=== PATIENT | female | born 1955 | race Caucasian/White ===

== ENCOUNTER 2016-09-07 08:32 | Emergency (ER) | payer MEDICARE, MEDICAID ==
[~2016-09-07] VITALS: Ht 160 cm; Wt 87.0 kg
[~2016-09-07 08:32] MED LIST: XANAX
[2016-09-07] MEDS ORDERED: SODIUM CHLORIDE 0.9% 1,000 ML IV ONE (11:14)
[2016-09-07] MEDS ORDERED: ONDANSETRON HCL 4MG/2ML VIAL IV STA (11:14)
[2016-09-07] MEDS ORDERED: CLINDAMYCIN 900 MG in DEXTROSE 5% WATER 50 ML IV ONE (11:15)
[2016-09-07] MEDS ORDERED: KETOROLAC 30MG/ML VIAL IV ONE (11:30)
[2016-09-07 11:43] LABS: BASOPHILS % 0.7 % (0.0-2.0); EOSINOPHILS % 1.8 % (0.0-5.0); HEMOGLOBIN. 13.8 g/dL (12.0-16.0); LYMPHOCYTES % 19.4 % (20.0-50.0); MEAN CORPUSCULAR VOLUME 101.8 fL (81.0-99.0); MEAN PLATELET VOLUME 7.5 fl (7.4-10.4); MONOCYTES % 6.8 % (2.0-8.0); NEUTROPHILS % 71.3 % (40.0-76.0); PLATELET 155 x1000/uL (130-400); RED BLOOD CELL COUNT 3.93 mill/uL (4.2-5.4); RED CELL DISTRIBUTION WIDTH 15.6 % (11.6-14.6)
[2016-09-07 11:47] LABS: CHLORIDE 103 mEq/L (98-107)
[2016-09-07 11:55] LABS: CARBON DIOXIDE 25 mEq/L (21-32)
[2016-09-07 14:01] VITALS: BP 149/69
== END 2016-09-07 14:08 | disposition home or self-care (01) ==
LOC: ER 10:04
DX: I10 Essential (primary) hypertension (principal); K02.9 Dental caries, unspecified; K05.10 Chronic gingivitis, plaque induced; R11.10 Vomiting, unspecified
CPT/HCPCS: 36415; 70486; 80053; 85025; 96361; 96365; 96375; 99285; J1885; J2405; J3490; J7030; J7060

== ENCOUNTER 2016-10-16 13:12 | Emergency (ER) | payer MEDICARE, MEDICAID ==
[~2016-10-16] VITALS: Ht 165.1 cm; Wt 73.0 kg
[2016-10-16 14:04] VITALS: BP 146/93
== END 2016-10-16 17:30 | disposition home or self-care (01) ==
LOC: ER 15:52
DX: K08.89 Other specified disorders of teeth and supporting structures (principal); I10 Essential (primary) hypertension; F41.9 Anxiety disorder, unspecified
CPT/HCPCS: 99283

== ENCOUNTER 2016-12-12 13:39 | Emergency (ER) | payer MEDICARE, MEDICAID ==
[~2016-12-12] VITALS: Ht 160 cm; Wt 86.0 kg
[2016-12-12 13:59] VITALS: BP 163/95
== END 2016-12-12 18:11 | disposition left against medical advice (07) ==
LOC: ER 15:41
DX: R21 Rash and other nonspecific skin eruption (principal); Z53.21 Procedure and treatment not carried out due to patient leaving prior to being seen by health care provider

== ENCOUNTER 2017-08-04 18:29 | Inpatient (IN) | payer MEDICARE, MEDICAID ==
[~2017-08-04] VITALS: Ht 170.2 cm; Wt 86.2 kg
[2017-08-04 20:17] LABS: EOSINOPHILS % 1.8 % (0.0-5.0); HEMATOCRIT. 39.7 % (36.0-48.0); HEMOGLOBIN. 13.6 g/dL (12.0-16.0); LYMPHOCYTES % 44.3 % (20.0-50.0); MEAN CORPUSCULAR VOLUME 102.1 fL (81.0-99.0); MEAN PLATELET VOLUME 7.3 fl (7.4-10.4); MONOCYTES % 7.6 % (2.0-8.0); NEUTROPHILS % 45.3 % (40.0-76.0); PLATELET 244 x1000/uL (130-400); RED BLOOD CELL COUNT 3.89 mill/uL (4.2-5.4); RED CELL DISTRIBUTION WIDTH 14.6 % (11.6-14.6)
[2017-08-04 20:18] LABS: CHLORIDE 106 mEq/L (98-107)
[2017-08-04 20:43] LABS: ETHANOL BLOOD 291 mg/dL
[2017-08-05] MEDS ORDERED: CLONIDINE 0.1MG TABLET PO PRN (00:45)
[2017-08-05] MEDS ORDERED: DOCUSATE SODIUM 100MG CAPSULE PO PRN (00:45)
[2017-08-05] MEDS ORDERED: HYDROCODONE/ACETAMINOPHEN 5/325MG TABLET PO PRN ×2 (00:45→19:00)
[2017-08-05] MEDS ORDERED: ACETAMINOPHEN 325MG TABLET PO PRN ×2 (00:45→19:00)
[2017-08-05] MEDS ORDERED: IPRATROPIUM/ALBUTEROL 0.5-3(2.5)MG/3ML NEB INH PRN (00:45)
[2017-08-05] MEDS ORDERED: MAGNESIUM/ALUMINUM HYDROXIDE/SIMETHICONE 30ML UDC PO PRN (00:45)
[2017-08-05] MEDS ORDERED: MVI, ADULT NO.1 10 ML, FOLIC ACID 1 MG, THIAMINE HCL 100 MG in SODIUM CHLORIDE 0.9% 1,0... IV NR ×4 (01:30)
[2017-08-05] MEDS ORDERED: ASPIRIN 81MG TABLET PO ONE (03:00)
[2017-08-05 04:00] VITALS: BP 114/63
[2017-08-05] MEDS: LORAZEPAM 2MG/ML CPJ IV PRN ×3 (04:22→14:32)
[2017-08-05] MEDS: CHLORDIAZEPOXIDE 25MG CAPSULE PO SCH ×3 (07:04→22:05)
[2017-08-05 07:23] LABS: CHLORIDE 108 mEq/L (98-107)
[2017-08-05 07:37] LABS: CREATINE KINASE 97 IU/L (26-192)
[2017-08-05 08:00] VITALS: BP 124/86
[2017-08-05] MEDS: FOLIC ACID 1MG TABLET PO SCH (08:10)
[2017-08-05] MEDS: ASPIRIN 81MG EC TABLET PO SCH (08:10)
[2017-08-05] MEDS: MULTIVITAMINS,THER W-MINERALS TABLET PO SCH (08:10)
[2017-08-05] MEDS: THIAMINE HCL 100MG TABLET PO SCH (08:10)
[2017-08-05] MEDS: ONDANSETRON HCL 4MG/2ML VIAL IV PRN ×2 (08:11→17:27)
[2017-08-05] MEDS: SODIUM CHLORIDE 0.9% 1,000 ML IV SCH ×2 (11:02→22:06)
[2017-08-05 12:00] VITALS: BP_SYST 129; BP_SYST 94; BP_DIAS 55; BP_DIAS 77
[2017-08-05 15:55] LABS: CREATINE KINASE 91 IU/L (26-192)
[2017-08-05 15:56] LABS: CREATINE KINASE MB FRACTION 1.2 ng/mL (0.5-3.6)
[2017-08-05 16:00] VITALS: BP 145/80
[2017-08-05 16:00] LABS: T4 FREE 0.82 ng/dL (0.76-1.46)
[2017-08-05 16:40] LABS: VITAMIN B12 SERUM 318 pg/mL (211-911)
[2017-08-05 16:52] LABS: FOLIC ACID (FOLATE) SERUM > 20.00 ng/mL (>5.38)
[2017-08-05 17:08] LABS: AMMONIA 30 uMol/L (<32)
[2017-08-05] MEDS: DIPHENHYDRAMINE 50MG/ML VIAL IV PRN (17:28)
[2017-08-05] MEDS ORDERED: HYDROCODONE/ACETAMINOPHEN 10/325MG TABLET PO PRN (19:00)
[2017-08-05 20:00] VITALS: BP 143/89
[2017-08-06 00:14] VITALS: BP 152/78
[2017-08-06] MEDS: LORAZEPAM 2MG/ML CPJ IV PRN (03:50)
[2017-08-06 04:00] VITALS: BP 148/79
[2017-08-06] MEDS: CHLORDIAZEPOXIDE 25MG CAPSULE PO SCH ×2 (06:00→12:57)
[2017-08-06] MEDS: DIPHENHYDRAMINE 50MG/ML VIAL IV PRN (06:16)
[2017-08-06 07:16] LABS: BASOPHILS % 0.6 % (0.0-2.0); EOSINOPHILS % 2.6 % (0.0-5.0); HEMATOCRIT. 41.5 % (36.0-48.0); HEMOGLOBIN. 14.3 g/dL (12.0-16.0); LYMPHOCYTES % 19.5 % (20.0-50.0); MEAN CORPUSCULAR HEMOGLOBIN 35.1 pg (28.0-32.0); MEAN CORPUSCULAR VOLUME 101.9 fL (81.0-99.0); MEAN PLATELET VOLUME 7.9 fl (7.4-10.4); MONOCYTES % 7.4 % (2.0-8.0); NEUTROPHILS % 69.9 % (40.0-76.0); PLATELET 196 x1000/uL (130-400); RED BLOOD CELL COUNT 4.07 mill/uL (4.2-5.4); RED CELL DISTRIBUTION WIDTH 14.4 % (11.6-14.6)
[2017-08-06 07:25] LABS: CHLORIDE 108 mEq/L (98-107)
[2017-08-06 07:33] LABS: LDL CHOLESTEROL 68 mg/dL (5-100)
[2017-08-06 07:36] LABS: HDL CHOLESTEROL 75 mg/dL (40-59)
[2017-08-06 08:00] VITALS: BP 140/78
[2017-08-06 08:10] LABS: CLARITY URINE CLOUDY (CLEAR); COLOR URINE YELLOW (YELLOW); KETONES URINE NEGATIVE (NEGATIVE); LEUKOCYTE ESTERASE URINE 1+ (NEGATIVE); NITRITE URINE NEGATIVE (NEGATIVE); OCCULT BLOOD URINE TRACE (NEGATIVE); PROTEIN URINE NEGATIVE (NEGATIVE); SPECIFIC GRAVITY URINE 1.021 (1.005-1.030); UROBILINOGEN URINE 0.2 E.U./dL (0.2-1.0)
[2017-08-06 08:28] LABS: *BARBITURATES SCREEN URINE NEGATIVE (NEGATIVE)
[2017-08-06 08:29] LABS: *AMPHETAMINES SCREEN URINE NEGATIVE (NEGATIVE); *BENZODIAZEPINES SCREEN URINE PRESUMTIVE POSITIVE (NEGATIVE); *COCAINE SCREEN URINE NEGATIVE (NEGATIVE); METHADONE URINE SCREEN NEGATIVE (NEGATIVE); OPIATES URINE SCREEN NEGATIVE (NEGATIVE); PHENCYCLIDINE URINE SCREEN NEGATIVE (NEGATIVE)
[2017-08-06 08:30] LABS: CANNABINOID URINE SCREEN PRESUMTIVE POSITIVE (NEGATIVE)
[2017-08-06] MEDS: THIAMINE HCL 100MG TABLET PO SCH (08:41)
[2017-08-06] MEDS: FOLIC ACID 1MG TABLET PO SCH (08:41)
[2017-08-06] MEDS: MULTIVITAMINS,THER W-MINERALS TABLET PO SCH (08:41)
[2017-08-06] MEDS: ASPIRIN 81MG EC TABLET PO SCH (08:41)
[2017-08-06] MEDS: ALPRAZOLAM 0.5 MG TABLET PO PRN ×2 (08:43→16:37)
[2017-08-06] MEDS: ONDANSETRON HCL 4MG/2ML VIAL IV PRN (11:12)
[2017-08-06 12:25] VITALS: BP 154/96
[2017-08-06] MEDS ORDERED: THIA100T72 PO (15:51)
[2017-08-06] MEDS ORDERED: DOCU-138 PO (15:51)
[2017-08-06] MEDS ORDERED: ASPI-1158 PO (15:51)
[2017-08-06] MEDS ORDERED: FOLI-43 PO (15:51)
[2017-08-06] MEDS ORDERED: CYAN10009 PO (15:51)
[2017-08-06 16:17] VITALS: BP 168/86
[2017-08-06] MEDS ORDERED: LOPERAMIDE HCL 2MG CAPSULE PO PRN (16:30)
[2017-08-06] MEDS: SODIUM CHLORIDE 0.9% 1,000 ML IV SCH (16:37)
[2017-08-07] MEDS ORDERED: CYANOCOBALAMIN 1000MCG TABLET PO SCH (07:50)
== END 2017-08-06 18:43 | disposition home or self-care (01) | DRG 896 ==
LOC: ER 20:39 → EDBEDREQTM 08-05 00:25 → EDBEDREQ 08-05 00:25 → EDBEDREQDT 08-05 00:25 → 6WST 08-05 00:39 → EDBEDREQ 08-05 00:42 → EDBEDREQTM 08-05 00:42 → ENRESERV 08-05 02:22
PROVIDERS: ADMIT Internal Medicine; ATTEND Internal Medicine
DX: F10.239 Alcohol dependence with withdrawal, unspecified (principal); G93.41 Metabolic encephalopathy; M48.02 Spinal stenosis, cervical region; E53.8 Deficiency of other specified B group vitamins; F41.9 Anxiety disorder, unspecified; F10.229 Alcohol dependence with intoxication, unspecified; I10 Essential (primary) hypertension; F17.200 Nicotine dependence, unspecified, uncomplicated; K21.9 Gastro-esophageal reflux disease without esophagitis; M47.812 Spondylosis without myelopathy or radiculopathy, cervical region; M50.323 Other cervical disc degeneration at C6-C7 level; Z79.899 Other long term (current) drug therapy; R26.9 Unspecified abnormalities of gait and mobility; Y90.8 Blood alcohol level of 240 mg/100 ml or more
CPT/HCPCS: 36415; 70450; 70551; 71045; 72141; 80048; 80053; 80061; 80305; 80307; 80329; 81003; 82140; 82550; 82553; 82607; 82746; 82962; 83036; 83735; 84439; 84443; 84481; 84484; 85025; 87493; 93005; 93970; 96365; 97162; 99285; G0482; J1200; J2060; J2405; J3411; J3490; J7030

== ENCOUNTER 2017-08-22 17:57 | Emergency (ER) | payer MEDICARE, MEDICAID ==
[~2017-08-22 17:57] MED LIST changes: +ASPI-1158 PO; +CYAN10009 PO; +DOCU-138 PO; +FOLI-43 PO; +THIA100T72 PO
[2017-08-22] MEDS ORDERED: MORPHINE SULFATE 4 MG/ML CPJ (NOT FOR IM USE) IV STA (18:27)
[2017-08-22] MEDS ORDERED: SODIUM CHLORIDE 0.9% 1,000 ML IV ONE (18:27)
[2017-08-22] MEDS ORDERED: FOLIC ACID 1 MG, THIAMINE HCL 100 MG, MVI, ADULT NO.1 10 ML in DEXTROSE 5% WATER 1,000 ML IV ONE ×4 (18:30)
[2017-08-22 19:14] LABS: BASOPHILS % 1.3 % (0.0-2.0); EOSINOPHILS % 2.1 % (0.0-5.0); HEMATOCRIT. 41.9 % (36.0-48.0); HEMOGLOBIN. 14.2 g/dL (12.0-16.0); LYMPHOCYTES % 24.8 % (20.0-50.0); MEAN CORPUSCULAR HEMOGLOBIN 34.6 pg (28.0-32.0); MEAN CORPUSCULAR VOLUME 101.9 fL (81.0-99.0); MEAN PLATELET VOLUME 7.7 fl (7.4-10.4); MONOCYTES % 6.7 % (2.0-8.0); NEUTROPHILS % 65.1 % (40.0-76.0); PLATELET 186 x1000/uL (130-400); RED BLOOD CELL COUNT 4.11 mill/uL (4.2-5.4); RED CELL DISTRIBUTION WIDTH 13.9 % (11.6-14.6)
[2017-08-22 19:18] LABS: CHLORIDE 103 mEq/L (98-107)
[2017-08-22 19:23] LABS: ETHANOL BLOOD 28 mg/dL
[2017-08-22] MEDS ORDERED: KETOROLAC 30MG/ML VIAL IV ONE (20:15)
[2017-08-23 00:31] VITALS: BP 115/81
== END 2017-08-23 00:35 | disposition home or self-care (01) ==
LOC: ER 17:57
DX: S09.90XA Unspecified injury of head, initial encounter (principal); R51 Headache; R53.1 Weakness; F10.10 Alcohol abuse, uncomplicated; Y90.1 Blood alcohol level of 20-39 mg/100 ml; F41.9 Anxiety disorder, unspecified; I10 Essential (primary) hypertension; F17.200 Nicotine dependence, unspecified, uncomplicated; Z79.82 Long term (current) use of aspirin; Y08.89XA Assault by other specified means, initial encounter; Y93.89 Activity, other specified; Y92.9 Unspecified place or not applicable
CPT/HCPCS: 36415; 70450; 80053; 85025; 96365; 96366; 96375; 99285; G0482; J1885; J2270; J3411; J3490; J7030; J7070

== ENCOUNTER 2018-03-04 22:10 | Emergency (ER) | payer MEDICARE, MEDICAID ==
[~2018-03-04] VITALS: Ht 160 cm; Wt 90.0 kg
[~2018-03-04 22:10] MED LIST changes: -XANAX
[2018-03-05 00:02] LABS: BASOPHILS % 1.1 % (0.0-2.0); EOSINOPHILS % 1.9 % (0.0-5.0); HEMATOCRIT. 40.2 % (36.0-48.0); LYMPHOCYTES % 37.5 % (20.0-50.0); MEAN CORPUSCULAR HEMOGLOBIN 35.5 pg (28.0-32.0); MEAN CORPUSCULAR VOLUME 101.9 fL (81.0-99.0); MEAN PLATELET VOLUME 7.3 fl (7.4-10.4); MONOCYTES % 7.8 % (2.0-8.0); NEUTROPHILS % 51.7 % (40.0-76.0); PLATELET 191 x1000/uL (130-400); RED BLOOD CELL COUNT 3.94 mill/uL (4.2-5.4)
[2018-03-05 00:05] LABS: CHLORIDE 106 mEq/L (98-107)
[2018-03-05 00:12] LABS: ETHANOL BLOOD 223 mg/dL
[2018-03-05 01:13] LABS: CLARITY URINE CLEAR (CLEAR); COLOR URINE YELLOW (YELLOW); KETONES URINE NEGATIVE (NEGATIVE); LEUKOCYTE ESTERASE URINE NEGATIVE (NEGATIVE); NITRITE URINE NEGATIVE (NEGATIVE); OCCULT BLOOD URINE NEGATIVE (NEGATIVE); PROTEIN URINE NEGATIVE (NEGATIVE); SPECIFIC GRAVITY URINE 1.014 (1.005-1.030); UROBILINOGEN URINE 0.2 E.U./dL (0.2-1.0)
[2018-03-05 01:46] LABS: *BARBITURATES SCREEN URINE NEGATIVE (NEGATIVE); *BENZODIAZEPINES SCREEN URINE PRESUMTIVE POSITIVE (NEGATIVE); *COCAINE SCREEN URINE NEGATIVE (NEGATIVE); METHADONE URINE SCREEN NEGATIVE (NEGATIVE); OPIATES URINE SCREEN NEGATIVE (NEGATIVE)
[2018-03-05 01:47] LABS: CANNABINOID URINE SCREEN NEGATIVE (NEGATIVE); PHENCYCLIDINE URINE SCREEN NEGATIVE (NEGATIVE)
[2018-03-05 01:49] LABS: *AMPHETAMINES SCREEN URINE NEGATIVE (NEGATIVE)
[2018-03-05] MEDS ORDERED: LORAZEPAM 0.5MG TABLET PO ONE (08:15)
[2018-03-05 14:43] VITALS: BP 148/84
== END 2018-03-05 15:06 ==
LOC: ER 22:10
DX: T42.4X2A Poisoning by benzodiazepines, intentional self-harm, initial encounter (principal); F30.9 Manic episode, unspecified; F10.229 Alcohol dependence with intoxication, unspecified; Y90.7 Blood alcohol level of 200-239 mg/100 ml; I10 Essential (primary) hypertension; G40.909 Epilepsy, unspecified, not intractable, without status epilepticus; Z79.82 Long term (current) use of aspirin; Y92.018 Other place in single-family (private) house as the place of occurrence of the external cause
CPT/HCPCS: 36415; 80053; 80305; 80307; 80329; 81003; 85025; 99285; G0482

== ENCOUNTER 2018-05-19 12:04 | Emergency (ER) | payer MEDICARE, MEDICAID ==
[~2018-05-19] VITALS: Ht 162.6 cm; Wt 70.0 kg
[2018-05-19 12:28] VITALS: BP 90/56
[2018-05-19] MEDS ORDERED: SODIUM CHLORIDE 0.9% 1,000 ML IV ONE (12:46)
[2018-05-19] MEDS ORDERED: ONDANSETRON HCL 4MG/2ML INJ IV STA (12:46)
[2018-05-19 13:08] LABS: BASOPHILS % 0.9 % (0.0-2.0); HEMATOCRIT. 40.5 % (36.0-48.0); HEMOGLOBIN. 13.8 g/dL (12.0-16.0); LYMPHOCYTES % 39.1 % (20.0-50.0); MEAN CORPUSCULAR HEMOGLOBIN 33.5 pg (28.0-32.0); MEAN CORPUSCULAR VOLUME 98.3 fL (81.0-99.0); MEAN PLATELET VOLUME 6.9 fl (7.4-10.4); MONOCYTES % 9.2 % (2.0-8.0); NEUTROPHILS % 48.8 % (40.0-76.0); PLATELET 174 x1000/uL (130-400); RED BLOOD CELL COUNT 4.12 mill/uL (4.2-5.4); RED CELL DISTRIBUTION WIDTH 14.4 % (11.6-14.6)
[2018-05-19 13:13] LABS: CHLORIDE 101 mEq/L (98-107)
== END 2018-05-19 13:26 | disposition left against medical advice (07) ==
LOC: ER 12:37
DX: F10.229 Alcohol dependence with intoxication, unspecified (principal); I95.9 Hypotension, unspecified; Y90.0 Blood alcohol level of less than 20 mg/100 ml; Z79.82 Long term (current) use of aspirin; Z79.899 Other long term (current) drug therapy
CPT/HCPCS: 36415; 80053; 83690; 83880; 84484; 85025; 93005; 99284; J7030

== ENCOUNTER 2018-05-20 19:38 | Emergency (ER) | payer MEDICARE, MEDICAID ==
[~2018-05-20] VITALS: Ht 160 cm; Wt 86.0 kg
[2018-05-20 19:42] VITALS: BP 102/76
== END 2018-05-21 | disposition left against medical advice (07) ==
LOC: ER 20:00
DX: Z53.21 Procedure and treatment not carried out due to patient leaving prior to being seen by health care provider (principal); I10 Essential (primary) hypertension; Z85.038 Personal history of other malignant neoplasm of large intestine

== ENCOUNTER 2018-09-03 15:00 | Emergency (ER) | payer OTHER, MEDICAID ==
[~2018-09-03] VITALS: Ht 165.1 cm; Wt 90.0 kg
[2018-09-03 16:53] LABS: CLARITY URINE CLEAR (CLEAR); COLOR URINE YELLOW (YELLOW); KETONES URINE NEGATIVE (NEGATIVE); LEUKOCYTE ESTERASE URINE NEGATIVE (NEGATIVE); NITRITE URINE NEGATIVE (NEGATIVE); OCCULT BLOOD URINE NEGATIVE (NEGATIVE); PH URINE 6.5 (4.5-8.0); PROTEIN URINE NEGATIVE (NEGATIVE); UROBILINOGEN URINE 0.2 E.U./dL (0.2-1.0)
[2018-09-03 17:48] LABS: BASOPHILS % 1.1 % (0.0-2.0); HEMATOCRIT. 39.6 % (36.0-48.0); HEMOGLOBIN. 13.3 g/dL (12.0-16.0); MEAN CORPUSCULAR HEMOGLOBIN 35.7 pg (28.0-32.0); MEAN CORPUSCULAR VOLUME 106.3 fL (81.0-99.0); MEAN PLATELET VOLUME 6.8 fl (7.4-10.4); NEUTROPHILS % 47.9 % (40.0-76.0); PLATELET 192 x1000/uL (130-400); RED BLOOD CELL COUNT 3.73 mill/uL (4.2-5.4); RED CELL DISTRIBUTION WIDTH 16.1 % (11.6-14.6)
[2018-09-03 17:52] LABS: CHLORIDE 106 mEq/L (98-107)
[2018-09-03 17:57] LABS: ETHANOL BLOOD 257 mg/dL
[2018-09-03 18:48] VITALS: BP 115/79
== END 2018-09-03 18:53 | disposition home or self-care (01) ==
LOC: ER 15:00
DX: F10.229 Alcohol dependence with intoxication, unspecified (principal); R60.0 Localized edema; F32.9 Major depressive disorder, single episode, unspecified; I10 Essential (primary) hypertension; Y90.8 Blood alcohol level of 240 mg/100 ml or more; Z86.73 Personal history of transient ischemic attack (TIA), and cerebral infarction without residual deficits; Z88.6 Allergy status to analgesic agent
CPT/HCPCS: 36415; 80320; 99283; G0480

== ENCOUNTER 2018-09-05 20:04 | Emergency (ER) | payer MEDICARE, MEDICAID ==
[~2018-09-05] VITALS: Ht 167.6 cm; Wt 65.0 kg
[2018-09-05 20:16] VITALS: BP 136/86
== END 2018-09-05 22:20 | disposition left against medical advice (07) ==
LOC: ER 20:04
DX: Z53.21 Procedure and treatment not carried out due to patient leaving prior to being seen by health care provider (principal)

== ENCOUNTER 2018-10-10 12:17 | Emergency (ER) | payer OTHER, MEDICAID ==
[~2018-10-10] VITALS: Ht 160 cm; Wt 61.0 kg
[~2018-10-10 12:17] MED LIST changes: +CYAN-50 PO; -CYAN10009 PO
[2018-10-10] MEDS ORDERED: SODIUM CHLORIDE 0.9% 1,000 ML IV ONE (14:15)
[2018-10-10] MEDS ORDERED: CYANOCOBALAMIN 1000MCG/ML VIAL IM ONE (14:15)
[2018-10-10 14:35] VITALS: BP 105/71
[2018-10-10 15:02] LABS: CHLORIDE 108 mEq/L (98-107)
[2018-10-10 15:21] LABS: ETHANOL BLOOD 310 mg/dL
[2018-10-10 15:23] LABS: CLARITY URINE CLEAR (CLEAR); COLOR URINE YELLOW (YELLOW); KETONES URINE NEGATIVE (NEGATIVE); LEUKOCYTE ESTERASE URINE 2+ (NEGATIVE); NITRITE URINE NEGATIVE (NEGATIVE); OCCULT BLOOD URINE NEGATIVE (NEGATIVE); PROTEIN URINE NEGATIVE (NEGATIVE); SPECIFIC GRAVITY URINE 1.009 (1.005-1.030); UROBILINOGEN URINE 0.2 E.U./dL (0.2-1.0)
[2018-10-10 15:26] LABS: BASOPHILS % 0.9 % (0.0-2.0); EOSINOPHILS % 2.7 % (0.0-5.0); HEMOGLOBIN. 14.6 g/dL (12.0-16.0); LYMPHOCYTES % 39.8 % (20.0-50.0); MEAN CORPUSCULAR VOLUME 103.8 fL (81.0-99.0); MEAN PLATELET VOLUME 7.9 fl (7.4-10.4); MONOCYTES % 4.6 % (2.0-8.0); PLATELET 190 x1000/uL (130-400); RED BLOOD CELL COUNT 4.05 mill/uL (4.2-5.4); RED CELL DISTRIBUTION WIDTH 15.9 % (11.6-14.6)
[2018-10-10 15:39] LABS: INR 2.2; PROTHROMBIN TIME 21.8 sec (9.6-11.0)
[2018-10-10 15:41] LABS: *AMPHETAMINES SCREEN URINE NEGATIVE (NEGATIVE); *BARBITURATES SCREEN URINE NEGATIVE (NEGATIVE); *BENZODIAZEPINES SCREEN URINE PRESUMTIVE POSITIVE (NEGATIVE); *COCAINE SCREEN URINE NEGATIVE (NEGATIVE); METHADONE URINE SCREEN NEGATIVE (NEGATIVE); OPIATES URINE SCREEN NEGATIVE (NEGATIVE)
[2018-10-10 15:42] LABS: CANNABINOID URINE SCREEN NEGATIVE (NEGATIVE); PHENCYCLIDINE URINE SCREEN NEGATIVE (NEGATIVE)
== END 2018-10-10 16:15 | disposition left against medical advice (07) ==
LOC: ER 12:51
DX: F10.129 Alcohol abuse with intoxication, unspecified (principal); Y90.8 Blood alcohol level of 240 mg/100 ml or more; M79.671 Pain in right foot; F32.9 Major depressive disorder, single episode, unspecified; I10 Essential (primary) hypertension; Z88.6 Allergy status to analgesic agent; Z79.82 Long term (current) use of aspirin
CPT/HCPCS: 36415; 80053; 80305; 80320; 81003; 85025; 85610; 96372; 99283; J3420; J7030; G0480

== ENCOUNTER 2018-10-11 19:16 | Emergency (ER) | payer OTHER, MEDICAID ==
[~2018-10-11] VITALS: Ht 167.6 cm; Wt 75.0 kg
[2018-10-11 20:32] LABS: EOSINOPHILS % 1.7 % (0.0-5.0); HEMATOCRIT. 41.3 % (36.0-48.0); HEMOGLOBIN. 14.1 g/dL (12.0-16.0); LYMPHOCYTES % 43.1 % (20.0-50.0); MEAN CORPUSCULAR HEMOGLOBIN 35.1 pg (28.0-32.0); MEAN CORPUSCULAR VOLUME 102.8 fL (81.0-99.0); MEAN PLATELET VOLUME 7.2 fl (7.4-10.4); MONOCYTES % 6.5 % (2.0-8.0); NEUTROPHILS % 47.7 % (40.0-76.0); PLATELET 160 x1000/uL (130-400); RED BLOOD CELL COUNT 4.02 mill/uL (4.2-5.4); RED CELL DISTRIBUTION WIDTH 15.7 % (11.6-14.6)
[2018-10-11 20:54] LABS: CHLORIDE 107 mEq/L (98-107)
[2018-10-11 21:07] LABS: ETHANOL BLOOD 305 mg/dL
[2018-10-12 06:53] VITALS: BP 115/70
== END 2018-10-12 06:55 | disposition home or self-care (01) ==
LOC: ER 19:16
DX: F10.229 Alcohol dependence with intoxication, unspecified (principal); R22.43 Localized swelling, mass and lump, lower limb, bilateral; I10 Essential (primary) hypertension; F32.9 Major depressive disorder, single episode, unspecified; Y90.8 Blood alcohol level of 240 mg/100 ml or more; Z79.82 Long term (current) use of aspirin
CPT/HCPCS: 36415; 71045; 80320; 83880; 84484; 93005; 99284; G0480

== ENCOUNTER 2018-11-02 20:11 | Emergency (ER) | payer OTHER, MEDICAID ==
[~2018-11-02] VITALS: Ht 160 cm; Wt 82.0 kg
[2018-11-02 23:16] LABS: BASOPHILS % 0.9 % (0.0-2.0); EOSINOPHILS % 2.6 % (0.0-5.0); HEMATOCRIT. 37.6 % (36.0-48.0); HEMOGLOBIN. 12.8 g/dL (12.0-16.0); LYMPHOCYTES % 32.9 % (20.0-50.0); MEAN CORPUSCULAR HEMOGLOBIN 35.1 pg (28.0-32.0); MEAN CORPUSCULAR VOLUME 103.3 fL (81.0-99.0); MEAN PLATELET VOLUME 7.1 fl (7.4-10.4); MONOCYTES % 6.8 % (2.0-8.0); NEUTROPHILS % 56.8 % (40.0-76.0); PLATELET 151 x1000/uL (130-400); RED BLOOD CELL COUNT 3.64 mill/uL (4.2-5.4); RED CELL DISTRIBUTION WIDTH 16.3 % (11.6-14.6)
[2018-11-02 23:19] LABS: CHLORIDE 108 mEq/L (98-107)
[2018-11-03] MEDS ORDERED: FUROSEMIDE 20MG/2ML VIAL IVP ONE (00:15)
[2018-11-03 03:51] VITALS: BP 112/68
== END 2018-11-03 03:54 | disposition home or self-care (01) ==
LOC: ER 20:11
DX: R60.0 Localized edema (principal); F10.20 Alcohol dependence, uncomplicated; F32.9 Major depressive disorder, single episode, unspecified; I10 Essential (primary) hypertension; K76.9 Liver disease, unspecified; F13.10 Sedative, hypnotic or anxiolytic abuse, uncomplicated; Z87.440 Personal history of urinary (tract) infections; Z87.09 Personal history of other diseases of the respiratory system; Z79.899 Other long term (current) drug therapy; Y90.8 Blood alcohol level of 240 mg/100 ml or more
CPT/HCPCS: 36415; 71045; 80053; 80320; 83880; 84484; 85025; 93005; 96374; 99284; J1940; G0480

== ENCOUNTER 2018-12-06 02:31 | Emergency (ER) | payer OTHER, MEDICAID ==
[~2018-12-06] VITALS: Ht 162.6 cm; Wt 84.0 kg
[2018-12-06] MEDS ORDERED: ONDANSETRON HCL 4MG/2ML INJ IV STA (03:29)
[2018-12-06] MEDS ORDERED: SODIUM CHLORIDE 0.9% 1,000 ML IV ONE ×2 (03:29→08:15)
[2018-12-06] MEDS ORDERED: FAMOTIDINE 20MG/2ML VIAL IV ONE (03:30)
[2018-12-06 04:23] LABS: BASOPHILS % 1.2 % (0.0-2.0); EOSINOPHILS % 1.5 % (0.0-5.0); HEMATOCRIT. 39.2 % (36.0-48.0); LYMPHOCYTES % 37.9 % (20.0-50.0); MEAN CORPUSCULAR HEMOGLOBIN 34.9 pg (28.0-32.0); MEAN PLATELET VOLUME 7.5 fl (7.4-10.4); MONOCYTES % 9.9 % (2.0-8.0); NEUTROPHILS % 49.5 % (40.0-76.0); PLATELET 179 x1000/uL (130-400); RED BLOOD CELL COUNT 3.74 mill/uL (4.2-5.4); RED CELL DISTRIBUTION WIDTH 16.8 % (11.6-14.6)
[2018-12-06 04:26] LABS: CHLORIDE 104 mEq/L (98-107)
[2018-12-06 04:30] LABS: ETHANOL BLOOD 285 mg/dL
[2018-12-06 05:10] LABS: CLARITY URINE CLEAR (CLEAR); COLOR URINE YELLOW (YELLOW); KETONES URINE NEGATIVE (NEGATIVE); LEUKOCYTE ESTERASE URINE TRACE (NEGATIVE); NITRITE URINE NEGATIVE (NEGATIVE); OCCULT BLOOD URINE NEGATIVE (NEGATIVE); PROTEIN URINE NEGATIVE (NEGATIVE); SPECIFIC GRAVITY URINE 1.006 (1.005-1.030); UROBILINOGEN URINE 0.2 E.U./dL (0.2-1.0)
[2018-12-06 05:33] LABS: *AMPHETAMINES SCREEN URINE NEGATIVE (NEGATIVE); CANNABINOID URINE SCREEN NEGATIVE (NEGATIVE); PHENCYCLIDINE URINE SCREEN NEGATIVE (NEGATIVE)
[2018-12-06 05:34] LABS: *BARBITURATES SCREEN URINE NEGATIVE (NEGATIVE); *BENZODIAZEPINES SCREEN URINE PRESUMTIVE POSITIVE (NEGATIVE); *COCAINE SCREEN URINE PRESUMTIVE POSITIVE (NEGATIVE); METHADONE URINE SCREEN NEGATIVE (NEGATIVE); OPIATES URINE SCREEN NEGATIVE (NEGATIVE)
[2018-12-06 11:15] VITALS: BP 135/87
== END 2018-12-06 11:30 | disposition home or self-care (01) ==
LOC: ER 02:31
DX: F10.129 Alcohol abuse with intoxication, unspecified (principal); R11.2 Nausea with vomiting, unspecified; G47.30 Sleep apnea, unspecified; Z88.5 Allergy status to narcotic agent; Z79.82 Long term (current) use of aspirin; Z79.899 Other long term (current) drug therapy; Y90.9 Presence of alcohol in blood, level not specified
CPT/HCPCS: 36415; 80053; 80305; 80320; 81003; 83690; 85025; 96374; 96375; 99283; J2405; J3490; J7030; G0480

== ENCOUNTER 2019-01-04 11:59 | Emergency (ER) | payer OTHER, MEDICAID ==
[~2019-01-04] VITALS: Ht 175.3 cm; Wt 91.0 kg
[2019-01-04] MEDS ORDERED: SODIUM CHLORIDE 0.9% 1,000 ML IV ONE (12:45)
[2019-01-04 13:20] LABS: EOSINOPHILS % 3.6 % (0.0-5.0); HEMATOCRIT. 39.9 % (36.0-48.0); HEMOGLOBIN. 13.5 g/dL (12.0-16.0); LYMPHOCYTES % 42.3 % (20.0-50.0); MEAN CORPUSCULAR VOLUME 103.2 fL (81.0-99.0); MEAN PLATELET VOLUME 7.5 fl (7.4-10.4); MONOCYTES % 8.1 % (2.0-8.0); PLATELET 166 x1000/uL (130-400); RED BLOOD CELL COUNT 3.86 mill/uL (4.2-5.4); RED CELL DISTRIBUTION WIDTH 16.5 % (11.6-14.6)
[2019-01-04 13:24] LABS: CHLORIDE 108 mEq/L (98-107)
[2019-01-04 13:44] LABS: ETHANOL BLOOD 290 mg/dL
[2019-01-04 14:58] VITALS: BP 106/73
== END 2019-01-04 15:15 | disposition left against medical advice (07) ==
LOC: ER 11:59
DX: F10.229 Alcohol dependence with intoxication, unspecified (principal); Y90.8 Blood alcohol level of 240 mg/100 ml or more; F13.929 Sedative, hypnotic or anxiolytic use, unspecified with intoxication, unspecified; R03.0 Elevated blood-pressure reading, without diagnosis of hypertension
CPT/HCPCS: 36415; 80053; 80307; 80320; 80329; 85025; 99283; J7030; G0480

== ENCOUNTER 2019-01-10 18:20 | Emergency (ER) | payer OTHER, MEDICAID ==
[~2019-01-10] VITALS: Ht 160 cm; Wt 84.0 kg
[2019-01-10] MEDS ORDERED: ALPR-339 PO (18:31)
[2019-01-10] MEDS: SODIUM CHLORIDE 0.9% 1,000 ML IV ONE (22:05)
[2019-01-10 22:50] LABS: BASOPHILS % 0.6 % (0.0-2.0); EOSINOPHILS % 0.8 % (0.0-5.0); HEMATOCRIT. 41.6 % (36.0-48.0); HEMOGLOBIN. 14.2 g/dL (12.0-16.0); LYMPHOCYTES % 21.2 % (20.0-50.0); MEAN CORPUSCULAR HEMOGLOBIN 34.7 pg (28.0-32.0); MEAN CORPUSCULAR VOLUME 101.9 fL (81.0-99.0); MONOCYTES % 6.7 % (2.0-8.0); NEUTROPHILS % 70.7 % (40.0-76.0); PLATELET 112 x1000/uL (130-400); RED BLOOD CELL COUNT 4.08 mill/uL (4.2-5.4); RED CELL DISTRIBUTION WIDTH 16.1 % (11.6-14.6)
[2019-01-10 22:56] LABS: CHLORIDE 101 mEq/L (98-107)
[2019-01-10 23:00] LABS: ETHANOL BLOOD < 10 mg/dL
[2019-01-11] MEDS: POTASSIUM CHLORIDE 20MEQ TABLET SR PO ONE (00:10)
[2019-01-11 02:09] LABS: CLARITY URINE CLOUDY (CLEAR); COLOR URINE YELLOW (YELLOW); KETONES URINE 1+ (NEGATIVE); LEUKOCYTE ESTERASE URINE 2+ (NEGATIVE); NITRITE URINE NEGATIVE (NEGATIVE); OCCULT BLOOD URINE NEGATIVE (NEGATIVE); PH URINE 7.5 (4.5-8.0); PROTEIN URINE 1+ (NEGATIVE); SPECIFIC GRAVITY URINE 1.025 (1.005-1.030)
[2019-01-11] MEDS: CEFTRIAXONE 1 G PREMIX 50 ML IV ONE (03:38)
[2019-01-11 04:45] VITALS: BP 150/87
== END 2019-01-11 04:45 | disposition home or self-care (01) ==
LOC: ER 18:20
DX: F41.9 Anxiety disorder, unspecified (principal); N39.0 Urinary tract infection, site not specified; I10 Essential (primary) hypertension; R42 Dizziness and giddiness; Z88.5 Allergy status to narcotic agent; Z79.899 Other long term (current) drug therapy; Z79.82 Long term (current) use of aspirin
CPT/HCPCS: 36415; 71045; 76705; 80053; 80320; 81003; 82962; 83690; 84484; 85025; 87077; 87086; 87186; 93005; 96361; 96365; 99284; J0696; J7030; G0480

== ENCOUNTER 2019-02-06 01:17 | Emergency (ER) | payer OTHER, MEDICAID ==
[~2019-02-06] VITALS: Ht 165.1 cm; Wt 71.0 kg
[~2019-02-06 01:17] MED LIST changes: +ALPR-339 PO
[2019-02-06 01:19] VITALS: BP 143/82
== END 2019-02-06 03:29 | disposition left against medical advice (07) ==
LOC: ER 01:17
DX: Z53.21 Procedure and treatment not carried out due to patient leaving prior to being seen by health care provider (principal)

== ENCOUNTER 2019-12-10 15:52 | Emergency (ER) | payer OTHER, MEDICAID ==
[~2019-12-10] VITALS: Ht 160 cm; Wt 75.0 kg
[2019-12-10 15:55] VITALS: BP 96/50
== END 2019-12-10 16:30 | disposition left against medical advice (07) ==
LOC: ER 15:52
DX: R51.9 Headache, unspecified (principal); Z53.21 Procedure and treatment not carried out due to patient leaving prior to being seen by health care provider

== ENCOUNTER 2020-11-01 17:18 | Emergency (ER) | payer OTHER, MEDICAID ==
[~2020-11-01] VITALS: Ht 172.7 cm; Wt 76.0 kg
[~2020-11-01 17:18] MED LIST changes: -ASPI-1158 PO; +ASPI-1406 PO
[2020-11-01 17:21] VITALS: BP 135/72
== END 2020-11-01 20:50 | disposition left against medical advice (07) ==
LOC: ER 17:18
DX: Z53.21 Procedure and treatment not carried out due to patient leaving prior to being seen by health care provider (principal)

== ENCOUNTER 2020-11-04 05:44 | Emergency (ER) | payer OTHER, MEDICAID ==
[~2020-11-04] VITALS: Ht 157.5 cm; Wt 91.0 kg
[2020-11-04 06:25] LABS: BASOPHILS % 0.7 % (0.0-2.0); EOSINOPHILS % 2.3 % (0.0-5.0); HEMATOCRIT. 35.6 % (36.0-48.0); HEMOGLOBIN. 11.9 g/dL (12.0-16.0); LYMPHOCYTES % 26.3 % (20.0-50.0); MEAN CORPUSCULAR HEMOGLOBIN 29.6 pg (28.0-32.0); MEAN CORPUSCULAR VOLUME 88.2 fL (81.0-99.0); MEAN PLATELET VOLUME 6.6 fl (7.4-10.4); NEUTROPHILS % 64.7 % (40.0-76.0); PLATELET 115 x1000/uL (130-400); RED BLOOD CELL COUNT 4.03 mill/uL (4.2-5.4); RED CELL DISTRIBUTION WIDTH 14.7 % (11.6-14.6)
[2020-11-04 06:32] LABS: CHLORIDE 112 mEq/L (98-107)
[2020-11-04 06:36] LABS: ETHANOL BLOOD 290 mg/dL
[2020-11-04 10:05] VITALS: BP 128/77
[2020-11-23] MEDS ORDERED: HYDR-4001 PO (01:17)
[2020-11-23] MEDS ORDERED: VALS80TA30 PO (01:17)
[2020-11-23] MEDS ORDERED: CHOL400T31 (01:17)
[2020-11-23] MEDS ORDERED: CLON0.252 PO (01:17)
== END 2020-11-04 10:15 | disposition home or self-care (01) ==
LOC: ER 05:44
DX: R60.9 Edema, unspecified (principal); I10 Essential (primary) hypertension; Z79.82 Long term (current) use of aspirin
CPT/HCPCS: 36415; 71045; 80053; 80320; 83880; 84484; 85025; 93005; 93970; 99285; G0480

== ENCOUNTER 2020-11-05 14:30 | Emergency (ER) | payer OTHER, MEDICAID ==
[~2020-11-05] VITALS: Ht 167.6 cm; Wt 80.0 kg
[2020-11-05 14:35] VITALS: BP 124/80
== END 2020-11-05 15:10 | disposition left against medical advice (07) ==
LOC: ER 14:43
DX: F10.229 Alcohol dependence with intoxication, unspecified (principal); R06.02 Shortness of breath; Y90.0 Blood alcohol level of less than 20 mg/100 ml; I10 Essential (primary) hypertension; Z79.899 Other long term (current) drug therapy
CPT/HCPCS: 99283

== ENCOUNTER 2020-11-06 02:26 | Emergency (ER) | payer OTHER, MEDICAID ==
[~2020-11-06] VITALS: Ht 167.6 cm; Wt 76.0 kg
[2020-11-06 02:28] VITALS: BP 128/88
[2020-11-23] MEDS ORDERED: VALS80TA30 PO (01:17)
[2020-11-23] MEDS ORDERED: CLON0.252 PO (01:17)
[2020-11-23] MEDS ORDERED: CHOL400T31 (01:17)
[2020-11-23] MEDS ORDERED: HYDR-4001 PO (01:17)
== END 2020-11-06 03:45 | disposition left against medical advice (07) ==
LOC: ER 02:26
DX: Z53.21 Procedure and treatment not carried out due to patient leaving prior to being seen by health care provider (principal)

== ENCOUNTER 2020-11-11 01:38 | Emergency (ER) | payer OTHER, MEDICAID ==
[~2020-11-11] VITALS: Ht 165.1 cm; Wt 90.0 kg
[2020-11-11] MEDS ORDERED: KETOROLAC 60MG/2ML VIAL IM ONE (02:00)
[2020-11-11] MEDS ORDERED: GABAPENTIN 300MG CAPSULE PO SCH (06:00)
[2020-11-11 06:19] VITALS: BP 125/85
[2020-11-23] MEDS ORDERED: CLON0.252 PO (01:17)
[2020-11-23] MEDS ORDERED: HYDR-4001 PO (01:17)
[2020-11-23] MEDS ORDERED: VALS80TA30 PO (01:17)
[2020-11-23] MEDS ORDERED: CHOL400T31 (01:17)
== END 2020-11-11 09:13 | disposition home or self-care (01) ==
LOC: ER 01:38
DX: G62.9 Polyneuropathy, unspecified (principal); I10 Essential (primary) hypertension; Z79.82 Long term (current) use of aspirin
CPT/HCPCS: 96372; 99283; J1885

== ENCOUNTER 2020-11-12 04:42 | Emergency (ER) | payer OTHER, MEDICAID ==
[~2020-11-12] VITALS: Ht 170.2 cm; Wt 69.2 kg
[2020-11-12 04:59] VITALS: BP 132/81
[2020-11-23] MEDS ORDERED: VALS80TA30 PO (01:17)
[2020-11-23] MEDS ORDERED: HYDR-4001 PO (01:17)
[2020-11-23] MEDS ORDERED: CHOL400T31 (01:17)
[2020-11-23] MEDS ORDERED: CLON0.252 PO (01:17)
== END 2020-11-12 07:20 | disposition left against medical advice (07) ==
LOC: ER 04:42
DX: Z53.21 Procedure and treatment not carried out due to patient leaving prior to being seen by health care provider (principal)

== ENCOUNTER 2020-11-18 14:08 | Emergency (ER) | payer OTHER, MEDICAID ==
[~2020-11-18] VITALS: Ht 167.6 cm; Wt 78.0 kg
[2020-11-18 16:19] LABS: BASOPHILS % 1.2 % (0.0-2.0); EOSINOPHILS % 1.9 % (0.0-5.0); HEMATOCRIT. 36.9 % (36.0-48.0); HEMOGLOBIN. 12.5 g/dL (12.0-16.0); LYMPHOCYTES % 42.7 % (20.0-50.0); MEAN CORPUSCULAR HEMOGLOBIN 30.5 pg (28.0-32.0); MEAN CORPUSCULAR VOLUME 90.3 fL (81.0-99.0); MEAN PLATELET VOLUME 6.7 fl (7.4-10.4); MONOCYTES % 4.8 % (2.0-8.0); NEUTROPHILS % 49.4 % (40.0-76.0); PLATELET 108 x1000/uL (130-400); RED BLOOD CELL COUNT 4.09 mill/uL (4.2-5.4); RED CELL DISTRIBUTION WIDTH 17.9 % (11.6-14.6)
[2020-11-18 16:21] LABS: CHLORIDE 111 mEq/L (98-107)
[2020-11-18 16:43] LABS: ETHANOL BLOOD 325 mg/dL
[2020-11-18 17:38] LABS: CLARITY URINE CLEAR (CLEAR); COLOR URINE YELLOW (YELLOW); KETONES URINE NEGATIVE (NEGATIVE); LEUKOCYTE ESTERASE URINE 2+ (NEGATIVE); NITRITE URINE NEGATIVE (NEGATIVE); OCCULT BLOOD URINE TRACE (NEGATIVE); PROTEIN URINE NEGATIVE (NEGATIVE); SPECIFIC GRAVITY URINE 1.011 (1.005-1.030); UROBILINOGEN URINE 0.2 E.U./dL (0.2-1.0)
[2020-11-18 17:50] LABS: *BARBITURATES SCREEN URINE NEGATIVE (NEGATIVE); *BENZODIAZEPINES SCREEN URINE NEGATIVE (NEGATIVE); *COCAINE SCREEN URINE NEGATIVE (NEGATIVE); CANNABINOID URINE SCREEN NEGATIVE (NEGATIVE); METHADONE URINE SCREEN NEGATIVE (NEGATIVE); OPIATES URINE SCREEN PRESUMTIVE POSITIVE (NEGATIVE); PHENCYCLIDINE URINE SCREEN NEGATIVE (NEGATIVE)
[2020-11-18 17:51] LABS: *AMPHETAMINES SCREEN URINE NEGATIVE (NEGATIVE)
[2020-11-19] MEDS ORDERED: LORAZEPAM 1MG TABLET PO ONE (01:00)
[2020-11-19 07:07] VITALS: BP 129/80
[2020-11-23] MEDS ORDERED: CHOL400T31 (01:17)
[2020-11-23] MEDS ORDERED: CLON0.252 PO (01:17)
[2020-11-23] MEDS ORDERED: VALS80TA30 PO (01:17)
[2020-11-23] MEDS ORDERED: HYDR-4001 PO (01:17)
== END 2020-11-19 07:19 | disposition home or self-care (01) ==
LOC: ER 14:26
DX: R45.851 Suicidal ideations (principal); F10.129 Alcohol abuse with intoxication, unspecified; I10 Essential (primary) hypertension; Z79.82 Long term (current) use of aspirin; Z98.890 Other specified postprocedural states; Y90.8 Blood alcohol level of 240 mg/100 ml or more
CPT/HCPCS: 36415; 80053; 80305; 80320; 81003; 85025; 99285; G0480

== ENCOUNTER 2021-01-30 19:45 | Emergency (ER) | payer OTHER, MEDICAID ==
[~2021-01-30] VITALS: Ht 162.6 cm; Wt 73.0 kg
[~2021-01-30 19:45] MED LIST changes: +CHOL400T31; +CLON0.252 PO; +HYDR-4001 PO; +VALS80TA30 PO
[2021-01-30] MEDS ORDERED: SODIUM CHLORIDE 0.9% 1,000 ML IV ONE (21:15)
[2021-01-30] MEDS ORDERED: ONDANSETRON HCL 4MG/2ML INJ IV ONE (21:15)
[2021-01-31 00:01] LABS: BASOPHILS % 1.2 % (0.0-2.0); EOSINOPHILS % 4.4 % (0.0-5.0); HEMATOCRIT. 39.1 % (36.0-48.0); HEMOGLOBIN. 13.3 g/dL (12.0-16.0); LYMPHOCYTES % 31.2 % (20.0-50.0); MEAN CORPUSCULAR HEMOGLOBIN 32.6 pg (28.0-32.0); MEAN CORPUSCULAR VOLUME 96.2 fL (81.0-99.0); MEAN PLATELET VOLUME 6.7 fl (7.4-10.4); MONOCYTES % 6.4 % (2.0-8.0); NEUTROPHILS % 56.8 % (40.0-76.0); PLATELET 201 x1000/uL (130-400); RED BLOOD CELL COUNT 4.07 mill/uL (4.2-5.4); RED CELL DISTRIBUTION WIDTH 16.9 % (11.6-14.6)
[2021-01-31 00:18] LABS: CHLORIDE 105 mEq/L (98-107)
[2021-01-31 00:33] LABS: ETHANOL BLOOD 351 mg/dL
[2021-01-31 01:35] LABS: *AMPHETAMINES SCREEN URINE NEGATIVE (NEGATIVE); *BARBITURATES SCREEN URINE NEGATIVE (NEGATIVE); *BENZODIAZEPINES SCREEN URINE NEGATIVE (NEGATIVE); *COCAINE SCREEN URINE NEGATIVE (NEGATIVE); CANNABINOID URINE SCREEN NEGATIVE (NEGATIVE); METHADONE URINE SCREEN NEGATIVE (NEGATIVE); OPIATES URINE SCREEN NEGATIVE (NEGATIVE); PHENCYCLIDINE URINE SCREEN NEGATIVE (NEGATIVE)
[2021-01-31 05:09] VITALS: BP 110/68
== END 2021-01-31 05:14 | disposition home or self-care (01) ==
LOC: ER 19:48
DX: F10.229 Alcohol dependence with intoxication, unspecified (principal); I10 Essential (primary) hypertension; Y90.8 Blood alcohol level of 240 mg/100 ml or more
CPT/HCPCS: 36415; 71045; 80053; 80305; 80320; 85025; 93005; 96361; 96374; 99285; J2405; J7030; G0480

== ENCOUNTER 2021-02-01 09:37 | Emergency (ER) | payer OTHER, MEDICAID ==
[~2021-02-01] VITALS: Ht 172.7 cm; Wt 82.0 kg
[2021-02-01] MEDS ORDERED: IBUPROFEN 400MG TABLET PO ONE (10:00)
[2021-02-01 10:21] LABS: BASOPHILS % 1.2 % (0.0-2.0); LYMPHOCYTES % 34.8 % (20.0-50.0); MEAN CORPUSCULAR HEMOGLOBIN 32.6 pg (28.0-32.0); MEAN CORPUSCULAR VOLUME 97.9 fL (81.0-99.0); MEAN PLATELET VOLUME 6.8 fl (7.4-10.4); MONOCYTES % 4.7 % (2.0-8.0); NEUTROPHILS % 56.3 % (40.0-76.0); PLATELET 195 x1000/uL (130-400); RED BLOOD CELL COUNT 4.29 mill/uL (4.2-5.4); RED CELL DISTRIBUTION WIDTH 16.5 % (11.6-14.6)
[2021-02-01 10:23] LABS: CHLORIDE 107 mEq/L (98-107)
[2021-02-01 10:39] LABS: ETHANOL BLOOD 381 mg/dL
[2021-02-01 11:24] VITALS: BP 101/65
== END 2021-02-01 11:27 | disposition home or self-care (01) ==
LOC: ER 09:37
DX: F10.229 Alcohol dependence with intoxication, unspecified (principal); M54.89 Other dorsalgia; I10 Essential (primary) hypertension; Y90.8 Blood alcohol level of 240 mg/100 ml or more; Z79.82 Long term (current) use of aspirin; W01.0XXA Fall on same level from slipping, tripping and stumbling without subsequent striking against object, initial encounter; Y93.89 Activity, other specified; Y92.018 Other place in single-family (private) house as the place of occurrence of the external cause
CPT/HCPCS: 36415; 80053; 80320; 82962; 85025; 99284; G0480

== ENCOUNTER 2021-02-05 21:26 | Emergency (ER) | payer OTHER, MEDICAID ==
[~2021-02-05] VITALS: Ht 165.1 cm; Wt 77.0 kg
[2021-02-05] MEDS ORDERED: IBUPROFEN 600MG TABLET PO ONE (23:00)
[2021-02-05 23:21] VITALS: BP 138/88
== END 2021-02-05 23:23 | disposition home or self-care (01) ==
LOC: ER 21:26
DX: F10.129 Alcohol abuse with intoxication, unspecified (principal); Y90.9 Presence of alcohol in blood, level not specified; Z88.8 Allergy status to other drugs, medicaments and biological substances
CPT/HCPCS: 93005; 99283

== ENCOUNTER 2021-02-06 09:33 | Emergency (ER) | payer OTHER, MEDICAID ==
[~2021-02-06] VITALS: Ht 162.6 cm; Wt 65.0 kg
[2021-02-06] MEDS ORDERED: ACETAMINOPHEN 325MG TABLET PO ONE (10:00)
[2021-02-06 13:22] VITALS: BP 128/81
== END 2021-02-06 13:25 | disposition home or self-care (01) ==
LOC: ER 09:33
DX: F10.129 Alcohol abuse with intoxication, unspecified (principal); F17.200 Nicotine dependence, unspecified, uncomplicated; F12.10 Cannabis abuse, uncomplicated; I10 Essential (primary) hypertension; Z79.899 Other long term (current) drug therapy; Z98.890 Other specified postprocedural states; Y90.9 Presence of alcohol in blood, level not specified
CPT/HCPCS: 82962; 93005; 99284

== ENCOUNTER 2021-03-04 05:20 | Emergency (ER) | payer OTHER, MEDICAID ==
[~2021-03-04] VITALS: Ht 162.6 cm; Wt 91.0 kg
[2021-03-04 05:23] VITALS: BP 116/76
== END 2021-03-04 09:16 | disposition left against medical advice (07) ==
LOC: ER 05:20
DX: M25.551 Pain in right hip (principal); F10.229 Alcohol dependence with intoxication, unspecified; Y90.0 Blood alcohol level of less than 20 mg/100 ml; I10 Essential (primary) hypertension; F12.10 Cannabis abuse, uncomplicated; Z79.899 Other long term (current) drug therapy
CPT/HCPCS: 99283

== ENCOUNTER 2021-04-05 18:44 | Emergency (ER) | payer OTHER, MEDICAID ==
[~2021-04-05] VITALS: Ht 167.6 cm; Wt 70.0 kg
[2021-04-05 20:00] VITALS: BP 139/76
== END 2021-04-05 19:58 | disposition left against medical advice (07) ==
LOC: ER 18:44
DX: Z53.21 Procedure and treatment not carried out due to patient leaving prior to being seen by health care provider (principal); I10 Essential (primary) hypertension

== ENCOUNTER 2021-04-14 19:23 | Emergency (ER) | payer OTHER, MEDICAID ==
[~2021-04-14] VITALS: Ht 167.6 cm; Wt 75.0 kg
[2021-04-15 02:00] VITALS: BP 143/89
== END 2021-04-15 02:30 | disposition home or self-care (01) ==
LOC: ER 19:23
DX: F10.20 Alcohol dependence, uncomplicated (principal); I10 Essential (primary) hypertension; F12.10 Cannabis abuse, uncomplicated; Z79.899 Other long term (current) drug therapy
CPT/HCPCS: 99283

== ENCOUNTER 2021-06-07 10:15 | Emergency (ER) | payer OTHER, MEDICAID ==
[~2021-06-07] VITALS: Ht 167.6 cm; Wt 80.0 kg
[2021-06-07 11:25] LABS: BASOPHILS % 1.5 % (0.0-2.0); EOSINOPHILS % 2.2 % (0.0-5.0); HEMOGLOBIN. 13.1 g/dL (12.0-16.0); LYMPHOCYTES % 29.4 % (20.0-50.0); MEAN CORPUSCULAR HEMOGLOBIN 33.5 pg (28.0-32.0); MEAN CORPUSCULAR VOLUME 99.3 fL (81.0-99.0); MEAN PLATELET VOLUME 6.7 fl (7.4-10.4); MONOCYTES % 2.9 % (2.0-8.0); PLATELET 288 x1000/uL (130-400); RED BLOOD CELL COUNT 3.93 mill/uL (4.2-5.4)
[2021-06-07 11:32] LABS: CHLORIDE 105 mEq/L (98-107)
[2021-06-07 11:52] LABS: ETHANOL BLOOD 385 mg/dL
[2021-06-07 16:00] VITALS: BP 112/61
== END 2021-06-07 16:00 | disposition home or self-care (01) ==
LOC: ER 10:15
DX: F10.129 Alcohol abuse with intoxication, unspecified (principal); Y90.8 Blood alcohol level of 240 mg/100 ml or more; I10 Essential (primary) hypertension; E78.00 Pure hypercholesterolemia, unspecified; Z88.6 Allergy status to analgesic agent; Z79.82 Long term (current) use of aspirin; Z85.43 Personal history of malignant neoplasm of ovary
CPT/HCPCS: 36415; 80053; 80320; 82962; 85025; 99283; G0480

== ENCOUNTER 2021-06-08 11:16 | Emergency (ER) | payer OTHER, MEDICAID ==
[~2021-06-08] VITALS: Ht 162.6 cm; Wt 77.0 kg
[2021-06-08] MEDS ORDERED: SODIUM CHLORIDE 0.9% 1,000 ML IV ONE (13:00)
[2021-06-08 13:08] LABS: BASOPHILS % 2.1 % (0.0-2.0); HEMATOCRIT. 40.3 % (36.0-48.0); HEMOGLOBIN. 13.6 g/dL (12.0-16.0); LYMPHOCYTES % 31.7 % (20.0-50.0); MEAN CORPUSCULAR HEMOGLOBIN 33.1 pg (28.0-32.0); MEAN PLATELET VOLUME 6.5 fl (7.4-10.4); MONOCYTES % 3.4 % (2.0-8.0); NEUTROPHILS % 60.8 % (40.0-76.0); PLATELET 278 x1000/uL (130-400); RED BLOOD CELL COUNT 4.12 mill/uL (4.2-5.4); RED CELL DISTRIBUTION WIDTH 17.2 % (11.6-14.6)
[2021-06-08 13:18] LABS: CHLORIDE 106 mEq/L (98-107)
[2021-06-08 13:37] LABS: ETHANOL BLOOD 397 mg/dL
[2021-06-08 15:50] VITALS: BP 113/71
== END 2021-06-08 16:28 | disposition left against medical advice (07) ==
LOC: ER 11:27
DX: F10.229 Alcohol dependence with intoxication, unspecified (principal); Y90.8 Blood alcohol level of 240 mg/100 ml or more; E78.00 Pure hypercholesterolemia, unspecified; I10 Essential (primary) hypertension; Z79.899 Other long term (current) drug therapy; E86.0 Dehydration
CPT/HCPCS: 36415; 70450; 72125; 80053; 80320; 85025; 99284; J7030; G0480

== ENCOUNTER 2021-07-16 11:02 | Emergency (ER) | payer OTHER, MEDICAID ==
[~2021-07-16] VITALS: Ht 162.6 cm; Wt 77.0 kg
[2021-07-16] MEDS ORDERED: SODIUM CHLORIDE 0.9% 1,000 ML IV ONE (11:15)
[2021-07-16] MEDS ORDERED: LORAZEPAM 2MG/ML CPJ IM ONE (11:45)
[2021-07-16 11:48] LABS: CHLORIDE 112 mEq/L (98-107)
[2021-07-16 11:58] LABS: ETHANOL BLOOD 289 mg/dL
[2021-07-16 12:03] LABS: BASOPHILS % 0.8 % (0.0-2.0); EOSINOPHILS % 3.5 % (0.0-5.0); HEMATOCRIT. 36.4 % (36.0-48.0); HEMOGLOBIN. 12.1 g/dL (12.0-16.0); MEAN CORPUSCULAR HEMOGLOBIN 32.5 pg (28.0-32.0); MEAN CORPUSCULAR VOLUME 97.8 fL (81.0-99.0); MONOCYTES % 5.5 % (2.0-8.0); NEUTROPHILS % 50.2 % (40.0-76.0); PLATELET 124 x1000/uL (130-400); RED BLOOD CELL COUNT 3.72 mill/uL (4.2-5.4); RED CELL DISTRIBUTION WIDTH 15.3 % (11.6-14.6)
[2021-07-16 14:20] VITALS: BP 122/87
== END 2021-07-16 14:25 | disposition home or self-care (01) ==
LOC: ER 11:18
DX: S09.8XXA Other specified injuries of head, initial encounter (principal); F10.229 Alcohol dependence with intoxication, unspecified; I10 Essential (primary) hypertension; E78.00 Pure hypercholesterolemia, unspecified; K70.30 Alcoholic cirrhosis of liver without ascites; Y90.8 Blood alcohol level of 240 mg/100 ml or more; Z88.8 Allergy status to other drugs, medicaments and biological substances; W01.0XXA Fall on same level from slipping, tripping and stumbling without subsequent striking against object, initial encounter; Y93.89 Activity, other specified; Y92.018 Other place in single-family (private) house as the place of occurrence of the external cause
CPT/HCPCS: 36415; 70450; 72125; 80053; 80320; 85025; 96360; 96372; 99284; J2060; J7030; G0480

== ENCOUNTER 2021-10-04 16:28 | Emergency (ER) | payer OTHER, MEDICAID ==
[~2021-10-04] VITALS: Ht 167.6 cm; Wt 79.0 kg
[2021-10-04] MEDS ORDERED: KETOROLAC 30MG/ML VIAL IV STA (16:53)
[2021-10-04] MEDS ORDERED: SODIUM CHLORIDE 0.9% 1,000 ML IV ONE (17:00)
[2021-10-04 17:15] VITALS: BP 110/84
[2021-10-04 17:22] LABS: BASOPHILS % 0.7 % (0.0-2.0); EOSINOPHILS % 2.9 % (0.0-5.0); HEMATOCRIT. 38.6 % (36.0-48.0); HEMOGLOBIN. 12.9 g/dL (12.0-16.0); LYMPHOCYTES % 38.1 % (20.0-50.0); MEAN CORPUSCULAR HEMOGLOBIN 33.2 pg (28.0-32.0); MEAN PLATELET VOLUME 7.5 fl (7.4-10.4); MONOCYTES % 6.2 % (2.0-8.0); NEUTROPHILS % 52.1 % (40.0-76.0); PLATELET 154 x1000/uL (130-400); RED CELL DISTRIBUTION WIDTH 18.1 % (11.6-14.6)
[2021-10-04 17:27] LABS: CHLORIDE 102 mEq/L (98-107)
[2021-10-04 17:58] LABS: ETHANOL BLOOD 353 mg/dL
== END 2021-10-04 21:52 | disposition home or self-care (01) ==
LOC: ER 16:28
DX: F10.229 Alcohol dependence with intoxication, unspecified (principal); I10 Essential (primary) hypertension; E78.00 Pure hypercholesterolemia, unspecified; Y90.8 Blood alcohol level of 240 mg/100 ml or more; Z88.5 Allergy status to narcotic agent
CPT/HCPCS: 36415; 70450; 80053; 80320; 85025; 96374; 99284; J1885; J7030; G0480

== ENCOUNTER 2021-11-26 18:04 | Emergency (ER) | payer OTHER, MEDICAID ==
[~2021-11-26] VITALS: Ht 172.7 cm; Wt 73.0 kg
[2021-11-26 19:02] LABS: BASOPHILS % 0.7 % (0.0-2.0); EOSINOPHILS % 2.1 % (0.0-5.0); HEMATOCRIT. 36.4 % (36.0-48.0); HEMOGLOBIN. 12.4 g/dL (12.0-16.0); LYMPHOCYTES % 26.1 % (20.0-50.0); MEAN CORPUSCULAR HEMOGLOBIN 35.1 pg (28.0-32.0); MEAN CORPUSCULAR VOLUME 102.8 fL (81.0-99.0); MEAN PLATELET VOLUME 7.9 fl (7.4-10.4); MONOCYTES % 5.7 % (2.0-8.0); NEUTROPHILS % 65.4 % (40.0-76.0); PLATELET 175 x1000/uL (130-400); RED BLOOD CELL COUNT 3.54 mill/uL (4.2-5.4); RED CELL DISTRIBUTION WIDTH 15.7 % (11.6-14.6)
[2021-11-26 19:09] LABS: CHLORIDE 103 mEq/L (98-107)
[2021-11-26 19:17] LABS: ETHANOL BLOOD 248 mg/dL
[2021-11-26 19:18] LABS: HCG SCREEN NEGATIVE
[2021-11-26 23:53] VITALS: BP 105/73
== END 2021-11-26 23:30 | disposition home or self-care (01) ==
LOC: ER 18:04
DX: F10.229 Alcohol dependence with intoxication, unspecified (principal); R51.9 Headache, unspecified; I10 Essential (primary) hypertension; E78.00 Pure hypercholesterolemia, unspecified; Y90.8 Blood alcohol level of 240 mg/100 ml or more; Z88.5 Allergy status to narcotic agent; Y08.89XA Assault by other specified means, initial encounter; Y93.89 Activity, other specified; Y92.018 Other place in single-family (private) house as the place of occurrence of the external cause
CPT/HCPCS: 36415; 71045; 80053; 80320; 84703; 85025; 86850; 86900; 99285; G0480

== ENCOUNTER 2021-11-29 20:05 | Emergency (ER) | payer OTHER, MEDICAID ==
[~2021-11-29] VITALS: Ht 162.6 cm; Wt 82.0 kg
[2021-11-30 03:50] VITALS: BP 112/66
== END 2021-11-30 04:27 | disposition home or self-care (01) ==
LOC: ER 20:05
DX: S00.31XA Abrasion of nose, initial encounter (principal); W18.39XA Other fall on same level, initial encounter; Y93.89 Activity, other specified; Y92.89 Other specified places as the place of occurrence of the external cause; Y99.8 Other external cause status; F10.229 Alcohol dependence with intoxication, unspecified; Y90.0 Blood alcohol level of less than 20 mg/100 ml; I10 Essential (primary) hypertension
CPT/HCPCS: 99284

== ENCOUNTER 2021-12-02 08:20 | Emergency (ER) | payer OTHER, MEDICAID ==
[~2021-12-02] VITALS: Ht 162.6 cm; Wt 78.0 kg
[2021-12-02 10:58] VITALS: BP 112/78
== END 2021-12-02 11:19 | disposition home or self-care (01) ==
LOC: ER 08:20
DX: F10.229 Alcohol dependence with intoxication, unspecified (principal); Y90.0 Blood alcohol level of less than 20 mg/100 ml; I10 Essential (primary) hypertension; Z79.899 Other long term (current) drug therapy; W18.39XA Other fall on same level, initial encounter; Y93.89 Activity, other specified; Y92.89 Other specified places as the place of occurrence of the external cause; Y99.8 Other external cause status
CPT/HCPCS: 70486; 71045; 72170; 99284

== ENCOUNTER 2022-02-15 15:28 | Emergency (ER) | payer OTHER, MEDICAID ==
[~2022-02-15] VITALS: Ht 162.6 cm; Wt 86.0 kg
[2022-02-15 17:52] LABS: BASOPHILS % 1.1 % (0.0-2.0); HEMATOCRIT. 40.5 % (36.0-48.0); HEMOGLOBIN. 13.7 g/dL (12.0-16.0); LYMPHOCYTES % 43.8 % (20.0-50.0); MEAN CORPUSCULAR HEMOGLOBIN 33.9 pg (28.0-32.0); MEAN CORPUSCULAR VOLUME 99.9 fL (81.0-99.0); MEAN PLATELET VOLUME 6.9 fl (7.4-10.4); MONOCYTES % 8.3 % (2.0-8.0); NEUTROPHILS % 44.8 % (40.0-76.0); PLATELET 148 x1000/uL (130-400); RED BLOOD CELL COUNT 4.06 mill/uL (4.2-5.4); RED CELL DISTRIBUTION WIDTH 15.5 % (11.6-14.6)
[2022-02-15 17:57] LABS: CHLORIDE 102 mEq/L (98-107)
[2022-02-15 18:14] LABS: ETHANOL BLOOD 406 mg/dL
[2022-02-15 18:22] LABS: HCG SCREEN NEGATIVE
[2022-02-16 14:00] VITALS: BP 138/76
== END 2022-02-16 15:33 | disposition home or self-care (01) ==
LOC: ER 15:53
DX: F10.129 Alcohol abuse with intoxication, unspecified (principal); R74.01 Elevation of levels of liver transaminase levels; Y90.8 Blood alcohol level of 240 mg/100 ml or more; G92.9 Unspecified toxic encephalopathy; I10 Essential (primary) hypertension; G80.9 Cerebral palsy, unspecified; Z88.5 Allergy status to narcotic agent; Z87.19 Personal history of other diseases of the digestive system
CPT/HCPCS: 36415; 80053; 80307; 80320; 80329; 84703; 85025; 99283; G0480

== ENCOUNTER 2022-04-11 18:18 | Emergency (ER) | payer OTHER, MEDICAID ==
[~2022-04-11] VITALS: Ht 162.6 cm; Wt 76.0 kg
[2022-04-11 23:45] LABS: EOSINOPHILS % 1.2 % (0.0-5.0); HEMATOCRIT. 42.3 % (36.0-48.0); HEMOGLOBIN. 14.1 g/dL (12.0-16.0); MEAN CORPUSCULAR HEMOGLOBIN 33.3 pg (28.0-32.0); MEAN CORPUSCULAR VOLUME 99.7 fL (81.0-99.0); MEAN PLATELET VOLUME 7.6 fl (7.4-10.4); MONOCYTES % 5.6 % (2.0-8.0); NEUTROPHILS % 50.2 % (40.0-76.0); PLATELET 188 x1000/uL (130-400); RED BLOOD CELL COUNT 4.24 mill/uL (4.2-5.4); RED CELL DISTRIBUTION WIDTH 16.2 % (11.6-14.6)
[2022-04-11 23:49] LABS: CHLORIDE 101 mEq/L (98-107)
[2022-04-11 23:56] LABS: CREATINE KINASE 168 IU/L (26-192)
[2022-04-12] MEDS ORDERED: SODIUM CHLORIDE 0.9% 1,000 ML IV ONE (00:15)
[2022-04-12 00:59] LABS: ETHANOL BLOOD 289 mg/dL
[2022-04-12 05:05] VITALS: BP 107/45
[2022-04-12] MEDS ORDERED: ERGO1250 (16:43)
[2022-04-12] MEDS ORDERED: FOLI20CA MT (16:43)
[2022-04-12] MEDS ORDERED: CLON1TAB23 MT (16:43)
[2022-04-12] MEDS ORDERED: VALS80TA30 MT (16:43)
[2022-04-12] MEDS ORDERED: PROT20 MT (16:43)
== END 2022-04-12 05:08 | disposition home or self-care (01) ==
LOC: ER 18:53
DX: F10.229 Alcohol dependence with intoxication, unspecified (principal); Y90.0 Blood alcohol level of less than 20 mg/100 ml; I10 Essential (primary) hypertension; Z79.899 Other long term (current) drug therapy; E86.0 Dehydration; R41.82 Altered mental status, unspecified
CPT/HCPCS: 36415; 70450; 72125; 80053; 80320; 82550; 85025; 96360; 99284; J7030; G0480

== ENCOUNTER 2022-04-12 06:12 | Inpatient (IN) | payer OTHER, MEDICAID ==
[~2022-04-12] VITALS: Ht 152.4 cm; Wt 80.3 kg
[2022-04-12] MEDS ORDERED: ONDANSETRON HCL 4MG/2ML INJ IV STA (06:52)
[2022-04-12] MEDS ORDERED: SODIUM CHLORIDE 0.9% 1,000 ML IV ONE (07:00)
[2022-04-12] MEDS ORDERED: LORAZEPAM 2MG/ML CPJ IV ONE (07:45)
[2022-04-12] MEDS ORDERED: CHLORDIAZEPOXIDE 25MG CAPSULE PO ONE ×2 (07:45→11:45)
[2022-04-12 09:29] LABS: BASOPHILS % 0.3 % (0.0-2.0); EOSINOPHILS % 0.4 % (0.0-5.0); HEMATOCRIT. 39.9 % (36.0-48.0); HEMOGLOBIN. 13.4 g/dL (12.0-16.0); LYMPHOCYTES % 15.2 % (20.0-50.0); MEAN CORPUSCULAR HEMOGLOBIN 33.4 pg (28.0-32.0); MEAN PLATELET VOLUME 7.6 fl (7.4-10.4); MONOCYTES % 3.7 % (2.0-8.0); NEUTROPHILS % 80.4 % (40.0-76.0); PLATELET 166 x1000/uL (130-400); RED BLOOD CELL COUNT 4.03 mill/uL (4.2-5.4)
[2022-04-12 09:42] LABS: CHLORIDE 98 mEq/L (98-107)
[2022-04-12 09:52] LABS: ETHANOL BLOOD 48 mg/dL
[2022-04-12 15:30] VITALS: BP 130/79
[2022-04-12] MEDS ORDERED: ONDANSETRON HCL 4MG/2ML INJ IV PRN (16:15)
[2022-04-12] MEDS ORDERED: LORAZEPAM 2MG/ML CPJ IV PRN (16:15)
[2022-04-12] MEDS ORDERED: ACETAMINOPHEN 325MG TABLET PO PRN (16:15)
[2022-04-12] MEDS ORDERED: VALS80TA30 MT (16:43)
[2022-04-12] MEDS ORDERED: PROT20 MT (16:43)
[2022-04-12] MEDS ORDERED: ERGO1250 (16:43)
[2022-04-12] MEDS ORDERED: CLON1TAB23 MT (16:43)
[2022-04-12] MEDS ORDERED: FOLI20CA MT (16:43)
[2022-04-12 16:48] VITALS: BP 152/77
[2022-04-12 18:00] VITALS: BP 147/76
[2022-04-12] MEDS ORDERED: FOLIC ACID 1 MG, THIAMINE HCL 100 MG, MVI, ADULT NO.1 10 ML in DEXTROSE 5% WATER 1,000 ML IV NR ×4 (18:00)
[2022-04-12] MEDS: AMLODIPINE 10MG TABLET PO SCH (18:12)
[2022-04-12 20:00] VITALS: BP 134/70
[2022-04-12] MEDS: CHLORDIAZEPOXIDE 25MG CAPSULE PO SCH (21:23)
[2022-04-13] VITALS: BP 149/82
[2022-04-13 04:00] VITALS: BP 164/92
[2022-04-13] MEDS ORDERED: CLONIDINE 0.2MG TABLET PO PRN (04:45)
[2022-04-13] MEDS: CHLORDIAZEPOXIDE 25MG CAPSULE PO SCH ×3 (05:13→21:17)
[2022-04-13 07:41] LABS: BASOPHILS % 0.7 % (0.0-2.0); EOSINOPHILS % 2.1 % (0.0-5.0); HEMATOCRIT. 36.1 % (36.0-48.0); HEMOGLOBIN. 12.6 g/dL (12.0-16.0); LYMPHOCYTES % 26.9 % (20.0-50.0); MEAN CORPUSCULAR HEMOGLOBIN 34.4 pg (28.0-32.0); MEAN CORPUSCULAR VOLUME 98.2 fL (81.0-99.0); MEAN PLATELET VOLUME 7.5 fl (7.4-10.4); MONOCYTES % 11.2 % (2.0-8.0); NEUTROPHILS % 59.1 % (40.0-76.0); PLATELET 85 x1000/uL (130-400); RED BLOOD CELL COUNT 3.68 mill/uL (4.2-5.4); RED CELL DISTRIBUTION WIDTH 15.2 % (11.6-14.6)
[2022-04-13 07:42] LABS: CHLORIDE 98 mEq/L (98-107)
[2022-04-13 07:53] VITALS: BP 90/52
[2022-04-13] MEDS: AMLODIPINE 10MG TABLET PO SCH (08:54)
[2022-04-13 11:53] VITALS: BP 95/59
[2022-04-13 16:02] VITALS: BP 120/71
[2022-04-13 16:08] LABS: TOTAL IRON BINDING CAPACITY 344 ug/dL (250-450)
[2022-04-13 16:20] LABS: FERRITIN 178 ng/mL (10-291)
[2022-04-13 16:45] LABS: VITAMIN B12 SERUM 448 pg/mL (211-911)
[2022-04-13 17:03] LABS: FOLIC ACID (FOLATE) SERUM > 20.00 ng/mL (>5.38)
[2022-04-13 20:00] VITALS: BP 129/77
[2022-04-14] VITALS: BP 131/73
[2022-04-14] MEDS: LOPERAMIDE HCL 2MG CAPSULE PO PRN ×3 (00:07→17:26)
[2022-04-14 04:00] VITALS: BP 132/70
[2022-04-14] MEDS: CHLORDIAZEPOXIDE 25MG CAPSULE PO SCH ×3 (05:12→20:50)
[2022-04-14 08:00] VITALS: BP 147/60
[2022-04-14] MEDS: AMLODIPINE 10MG TABLET PO SCH (08:52)
[2022-04-14] MEDS: FOLIC ACID/VITAMIN B COMP W-C TABLET PO SCH (08:53)
[2022-04-14 12:00] VITALS: BP 130/83
[2022-04-14 16:00] VITALS: BP 135/78
[2022-04-14 20:00] VITALS: BP 121/78
[2022-04-15] VITALS: BP 127/72
[2022-04-15 04:00] VITALS: BP 113/54
[2022-04-15] MEDS: CHLORDIAZEPOXIDE 25MG CAPSULE PO SCH ×2 (04:51→13:15)
[2022-04-15 05:48] LABS: BASOPHILS % 0.5 % (0.0-2.0); EOSINOPHILS % 3.2 % (0.0-5.0); HEMATOCRIT. 35.4 % (36.0-48.0); HEMOGLOBIN. 11.9 g/dL (12.0-16.0); LYMPHOCYTES % 19.4 % (20.0-50.0); MEAN CORPUSCULAR HEMOGLOBIN 33.9 pg (28.0-32.0); MEAN CORPUSCULAR VOLUME 100.4 fL (81.0-99.0); MONOCYTES % 6.2 % (2.0-8.0); NEUTROPHILS % 70.7 % (40.0-76.0); PLATELET 86 x1000/uL (130-400); RED BLOOD CELL COUNT 3.53 mill/uL (4.2-5.4); RED CELL DISTRIBUTION WIDTH 15.4 % (11.6-14.6)
[2022-04-15 08:00] VITALS: BP 129/68
[2022-04-15] MEDS: FOLIC ACID/VITAMIN B COMP W-C TABLET PO SCH (08:40)
[2022-04-15] MEDS: AMLODIPINE 10MG TABLET PO SCH (08:44)
[2022-04-15 08:50] LABS: CHLORIDE 99 mEq/L (98-107)
[2022-04-15 12:00] VITALS: BP 126/68
[2022-04-15 14:31] VITALS: BP 126/74
[2022-04-18 04:08] LABS: OVA & PARASITE EXAM Final report (.)
== END 2022-04-15 15:18 | disposition home or self-care (01) | DRG 433 ==
LOC: ER 06:12 → MICUSO 10:15 → EDBEDREQTM 10:33 → EDBEDREQ 10:33 → 7WST 14:26
PROVIDERS: ADMIT Internal Medicine; ATTEND Internal Medicine
DX: K70.10 Alcoholic hepatitis without ascites (principal); F10.239 Alcohol dependence with withdrawal, unspecified; E66.9 Obesity, unspecified; E86.0 Dehydration; E87.5 Hyperkalemia; I10 Essential (primary) hypertension; K74.60 Unspecified cirrhosis of liver; R74.01 Elevation of levels of liver transaminase levels; R26.0 Ataxic gait; Y90.2 Blood alcohol level of 40-59 mg/100 ml; Z87.891 Personal history of nicotine dependence; Z88.8 Allergy status to other drugs, medicaments and biological substances; Z68.34 Body mass index [BMI] 34.0-34.9, adult
CPT/HCPCS: 36415; 71045; 76700; 80048; 80053; 80076; 80320; 82140; 82270; 82607; 82728; 82746; 83540; 83550; 83880; 84484; 85025; 87015; 87045; 87177; 87209; 87426; 87427; 87449; 87493; 93005; 97162; 99285; J2060; J2405; J3411; J3490; J7030; J7070; G0480

== ENCOUNTER 2022-06-27 16:55 | Emergency (ER) | payer OTHER, MEDICAID ==
[~2022-06-27] VITALS: Ht 160 cm; Wt 79.1 kg
[~2022-06-27 16:55] MED LIST changes: +CLON1TAB23 MT; +ERGO1250; +FOLI20CA MT; +PROT20 MT; +VALS80TA30 MT
[2022-06-27 17:03] VITALS: BP 143/91
[2022-06-27] MEDS ORDERED: AMOX1TAB16 MT (18:29)
[2022-06-27] MEDS ORDERED: AMOXICILLIN/POTASSIUM CLAVULANATE 875/125MG TAB PO ONE (18:30)
[2022-06-27] MEDS ORDERED: TETANUS, DIPHTHERIA, PERTUSSIS VAC/PF 0.5ML (>10YR OLD) IM ONE (18:30)
== END 2022-06-27 19:04 | disposition home or self-care (01) ==
LOC: ER 16:55
DX: S81.831A Puncture wound without foreign body, right lower leg, initial encounter (principal); W54.0XXA Bitten by dog, initial encounter; Y93.89 Activity, other specified; Y92.89 Other specified places as the place of occurrence of the external cause; Y99.8 Other external cause status; F10.229 Alcohol dependence with intoxication, unspecified; I10 Essential (primary) hypertension; Z79.899 Other long term (current) drug therapy; Y90.0 Blood alcohol level of less than 20 mg/100 ml
CPT/HCPCS: 90471; 90715; 99283

== ENCOUNTER 2022-07-15 16:55 | Emergency (ER) | payer OTHER, MEDICAID ==
[~2022-07-15] VITALS: Ht 160 cm; Wt 77.0 kg
[~2022-07-15 16:55] MED LIST changes: +AMOX1TAB16 MT
[2022-07-15 17:14] VITALS: BP 135/76
[2022-07-15 18:20] LABS: BASOPHILS % 0.5 % (0.0-2.0); EOSINOPHILS % 2.7 % (0.0-5.0); HEMATOCRIT. 36.8 % (36.0-48.0); HEMOGLOBIN. 12.5 g/dL (12.0-16.0); LYMPHOCYTES % 42.8 % (20.0-50.0); MEAN CORPUSCULAR HEMOGLOBIN 33.1 pg (28.0-32.0); MEAN CORPUSCULAR VOLUME 97.5 fL (81.0-99.0); MEAN PLATELET VOLUME 7.9 fl (7.4-10.4); PLATELET 114 x1000/uL (130-400); RED BLOOD CELL COUNT 3.78 mill/uL (4.2-5.4); RED CELL DISTRIBUTION WIDTH 14.1 % (11.6-14.6)
[2022-07-15 18:28] LABS: CHLORIDE 108 mEq/L (98-107)
[2022-07-15 18:39] LABS: ETHANOL BLOOD 298 mg/dL
== END 2022-07-16 04:50 | disposition home or self-care (01) ==
LOC: ER 16:55
DX: F10.229 Alcohol dependence with intoxication, unspecified (principal); Y90.8 Blood alcohol level of 240 mg/100 ml or more; I10 Essential (primary) hypertension; Z79.899 Other long term (current) drug therapy
CPT/HCPCS: 36415; 71045; 80053; 80320; 85025; 99284; G0480